=== PATIENT | female | born 1965 | race Two or more races ===

== ENCOUNTER 2020-01-23 12:57 | Outpatient (CLI) | payer OTHER | END 2020-01-23 18:14 | disposition home or self-care (01) | LOC: OFIC 805 12:57 | PROVIDERS: ATTEND Otolaryngology | DX: H91.8X2 Other specified hearing loss, left ear (principal); J32.4 Chronic pansinusitis; R09.81 Nasal congestion ==

== ENCOUNTER 2020-02-20 13:57 | Outpatient (CLI) | payer OTHER | END 2020-02-20 14:30 | disposition home or self-care (01) | LOC: OFIC 805 13:57 | PROVIDERS: ATTEND Otolaryngology | DX: R09.81 Nasal congestion (principal); H90.41 Sensorineural hearing loss, unilateral, right ear, with unrestricted hearing on the contralateral side ==